=== PATIENT | female | born 1965 | race Hispanic/Latino ===

== ENCOUNTER 2020-06-16 16:18 | Emergency (ER) | payer OTHER ==
[2020-06-16] MEDS ORDERED: KETOROLAC 30MG VIAL (30MG/ML) ONE (16:31)
[2020-06-16] MEDS ORDERED: CYCLOBENZAPRINE HCL 10 MG TABLET ONE (16:31)
[2020-06-16] MEDS ORDERED: HYDROCODONE/ACETAMINOPHEN 10/325 MG TAB ONE (16:32)
== END 2020-06-16 17:39 | disposition home or self-care (01) ==
LOC: EDH 16:18
DX: S39.012A Strain of muscle, fascia and tendon of lower back, initial encounter (principal); E11.9 Type 2 diabetes mellitus without complications; I10 Essential (primary) hypertension; V49.49XA Driver injured in collision with other motor vehicles in traffic accident, initial encounter; Y93.89 Activity, other specified; Y92.488 Other paved roadways as the place of occurrence of the external cause; Y99.8 Other external cause status
CPT/HCPCS: 72100; 96372; 99283; J1885